=== PATIENT | male | born 1980 | race African-American/Black ===

== ENCOUNTER 2023-06-16 09:54 | Emergency (ER) | payer BC, SELFPAY ==
[2023-06-16 10:04] VITALS: BP 163/107
[2023-06-16 10:27] VITALS: BP 141/93
[2023-06-16 10:29] VITALS: BMI 33.9
[2023-06-16 10:31] VITALS: BP 141/93
--- NOTE | 2023-06-16 10:46 | ED.GENMED ---
History of Present Illness
General
Chief Complaint: Blood Pressure Problem
Source: patient
Exam Limitations: none
Time Seen by Provider: 06/16/23 10:19
Nursing documentation reviewed up to this point in time: agreed with
Travel History
Have you had any contact with someone who has COVID-19?: No
Do you have any symptoms of coronavirus? Fever > 100 degrees, chills, cough, shortness of breath, sore throat, loss of taste or smell, muscle aches, or headache?: No
History of Present Illness
History of Present Illness:
Patient with history of hypertension on valsartan and type 2 diabetes on Jardiance, presents to ED secondary to sudden onset of blurry vision associated with blood pressure while he was at work this morning around 8 AM. Since then, symptoms have
gradually improved and at time of evaluation, patient is without any symptoms. Denies headache. Denies difficulty with speech. Denies loss of sensation or weakness. Denies difficulty ambulation. Denies difficulty swallowing. Denies dizziness.
Patient states that he has had similar symptoms in the past, but always resolved spontaneously. Denies recent illness. Denies recent change in medications or diet.
Review of Systems
Review of Systems
Allergies reviewed?: Yes
All Other Systems: ROS reviewed and negative except as documented in HPI and ROS
Constitutional: Reports no symptoms
EENT: Reports no symptoms
Respiratory: Reports no symptoms
Cardiac: Reports no symptoms
ABD/GI: Reports no symptoms
: Reports no symptoms
Musculoskeletal: Reports no symptoms
Skin: Reports no symptoms
Neurological: Reports other (blurred vision)
Phy Exam
Physical Exam
Physical Exam:
Physical Exam
General: no apparent distress, not acutely ill. afebrile
Head: nc/at. eomi
Neck: supple. no meningeal signs.
Heart: s1/s2 regular rate and rhythm, no murmur. equal radial pulses.
Lungs: no acute respiratory distress. clear bilaterally
Abdomen: normal bowel sounds. not tender.
Neuro: alert and oriented. no focal neurological deficits. normal speech.
Skin: no rash
Psychiatric: well kept. interactive and cooperative
Extremities: no edema. no calf tenderness.
Course
Orders/Labs/Results
Orders:
Orders
06/16/23 10:43
Electrocardiogram (*1) Urgent
Reason for Study: TIA/Stroke
CT Head W/o Iv Contrast Urgent
Comment:
Reason For Exam: blurred vision w mental status change
EKG- Treatment ONCE
06/16/23 10:55
Basic Metabolic Panel Urgent
Complete Blood Count/No Diff Urgent
Magnesium Urgent
Troponin I Urgent
06/16/23 11:07
Carotid US [US Cerebrovascular] Urgent
Comment:
Reason For Exam: blurred vision w mental status change
Abnormal Lab Results
06/16/23
10:55
Hgb 12.9 L g/dL
(13.0-18.0)
MCV 79.4 L fL
(80.0-94.0)
MCH 25.7 L pg
(27.0-31.0)
MCHC 32.4 L g/dL
(33.0-37.0)
MPV 11.1 H fL
(7.4-10.4)
Sodium 134 L mmol/L
(135-145)
BUN 25 H mg/dl
(9-20)
Glucose 247 H mg/dl
(70-99)
06/16/23 10:55
06/16/23 10:55
Vital Signs
Initial and Last Documented VS:
Initial Vital Signs
Temp Pulse Resp BP Pulse Ox
98 F 91 16 163/107 98
06/16/23 10:04 06/16/23 10:04 06/16/23 10:04 06/16/23 10:04 06/16/23 10:04
Last Documented Vital Signs
Temp Pulse Resp BP Pulse Ox
98 F 88 14 137/93 100
06/16/23 10:04 06/16/23 13:45 06/16/23 13:45 06/16/23 13:17 06/16/23 12:00
MDM/Problems Addressed
MDM/Problems Addressed:
Patient remains symptom-free during observation. Patient evaluated in ED by Dr. Dennison, neurology. Recommends obtaining CT head along with carotid ultrasound. If there is no significant findings, does not recommend starting, but recommends
keeping log of his blood pressure and following up with his primary care physician as outpatient.
CT head/Carotid US: no acute findings.
Pt will be discharged home in stable condition.
*Critical Care Note
Total Time (30-74mins, 75-104mins- exclusive of procedures): Not Applicable
ED Attending Note
-
Portions of this chart may have been created with voice recognition software.� Occasional wrong word or��sound alike� substitutions may have occurred due to the inherent limitations of voice recognition software.
Discharge Plan
Departure
Patient Disposition: Home (Routine Discharge)
Date of Disposition: 06/16/23
Time of Disposition: 13:53
Patient with high blood pressure during this ER visit?: Yes
Condition: Good
Discharge Problem:
Blurred vision, bilateral, Hypertension
Instructions: High Blood Pressure (DC)
Prescriptions:
No Action
famotidine 10 mg Tablet
10 mg PO DAILY
valsartan-hydrochlorothiazide 160-12.5 mg Tablet
1 tab PO DAILY
ascorbic acid (vitamin C) [Vitamin C] 500 mg Capsule, Extended Release
500 mg PO DAILY
Jardiance 25 mg Tablet
25 mg PO DAILY
Referrals:
Michael Mercer MD [Family Provider] -
Activity Restrictions/Additional Instructions:
As discussed, please follow up with your primary care physician for re-evaluation. Until then, please keep daily log of your blood pressure.
Interventions
Interventions:
*Risk Screen - Suicide Last Done: 06/16/23 10:27
*General Assessment Last Done: 06/16/23 10:29
*Neglect/Abuse Screening Last Done: 06/16/23 10:27
ED- Fall Risk Assessment Last Done: 06/16/23 10:24
*ED COVID-19 Vaccine History Last Done: 06/16/23 10:24
*Nursing Disposition Last Done: 06/16/23 14:10
ED- Cardiac Assessment Last Done: 06/16/23 10:31
ED- Neurological Assessment Last Done: 06/16/23 10:24
ED- Pulmonary Assessment Last Done: 06/16/23 10:31
Discharge Date and Time
Discharge Date/Time: 06/16/23 14:00
[2023-06-16 11:01] LABS: Hematocrit 39.8 % (39.0-52.0); Hemoglobin 12.9 g/dL (13.0-18.0); Mean Corp Hgb Conc. 32.4 g/dL (33.0-37.0); Mean Corpuscular Hgb 25.7 pg (27.0-31.0); Mean Corpuscular Volume 79.4 fL (80.0-94.0); Mean Platelet Volume 11.1 fL (7.4-10.4); Platelet Count 304 10^3/uL (130-400); Red Blood Cell Count 5.01 10^6/uL (4.70-6.10); Red Cell Dist. Width 13.4 % (11.5-14.5); White Blood Cell Count 9.4 10^3/uL (4.8-10.8)
[2023-06-16 11:14] LABS: Blood Urea Nitrogen 25 mg/dl (9-20); Calcium 9.5 mg/dl (8.4-10.2); Carbon Dioxide 25 mmol/L (22-30); Chloride 101 mmol/L (98-107); Estimated Creatinine Clearance 93 ml/min; Glucose 247 mg/dl (70-99); Sodium 134 mmol/L (135-145); eGFR > 60.00
[2023-06-16 11:16] VITALS: BP 157/102
[2023-06-16 11:27] LABS: Troponin I < 0.012 ng/ml
[2023-06-16 12:00] VITALS: BP 139/98
[2023-06-16 13:17] VITALS: BP 137/93
--- NOTE | 2023-06-16 15:03 | CON.NEURO4 ---
Consultation - Neurology 4
-
CONSULTING PHYSICIAN: Jude Dennison
REFERRING PHYSICIAN: ER
DICTATED BY: Jude Dennison
DATE/TIME OF REQUEST: 06/16/23
DATE/TIME OF CONSULTATION: 06/16/23
Reason for Consultation:
History of Present Illness:
Patient is a 42-year-old left handed male with a past med history of hypertension and [id number] diabetes mellitus presenting the hospital with complaints of blurred vision, mild slowness in speech occurring earlier this morning while at
work.
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
speech and may be some slow processing. Patient did not have any unilateral facial or limb paresthesia or weakness no vertigo or loss of consciousness. He does feel like vision has normalized. No chronic vision issues, he did have right eye
cataract surgery.
Patient has had some episodes similar to previous with some blurred vision in the eyes with higher blood pressures. He has been compliant with high blood pressure medication as well as diabetes medications no previous episodes of stroke or TIA. No
unusual headaches or any recent head or neck trauma. No recent illnesses.
Past Medical History: Hypertension, non insulin dependent diabetes
Surgical History: Right eye cataract surgery
Family History: Hypertension runs in the family
Social History: Engaged, works as medical device assembler, rare social alcohol once every 2 weeks, no tobacco
Review of Symptoms:
Patient denies any fever, headache, chest pain, shortness of breath, GI or symptoms.
Physical Exam:
Well-appearing middle-aged man well-groomed well-nourished no signs of head or neck trauma eyes are clear oropharynx is clear neck supple with no masses and full range of motion heart rate regular breathing unlabored abdomen soft nontender no lower
extremity edema is seen
Neurologic Examination:
The patient is awake, alert and oriented x 3. He is able to follow commands and answer questions appropriately. There is no aphasia or dysarthria. On cranial nerve assessment, pupils are 3 mm bilateral, round and reactive to light and
accommodation. Visual ramesh are full. Vision 20/20 in OD and OS. Extraocular movements are intact. Facial sensations are intact and bilaterally symmetrical, there is no facial asymmetry. Hearing is intact bilaterally to normal conversation volume.
Tongue palate and uvula are midline. Sternocleidomastoid strengths are full bilaterally. Motor strengths are 5/5 bilateral upper and lower extremities on medical research [place] scale. There is no drift or involuntary movement noted. Deep tendon
reflexes are 2+ bilateral upper and lower extremities and Babinski is absent bilaterally. Sensations of pain, touch, temperature and vibration are intact and bilaterally symmetrical. There was no extinction noted on double simultaneous stimulation.
Coordination is intact by finger to nose bilaterally.
Neuro Imaging:
CT head noncontrast with no acute abnormality no acute or chronic infarct seen no hemorrhage no masses no mass effect or edema
Carotid ultrasound no plaque and no significant stenosis any stenosis present would be less than 50%
Impressions
Blurred vision is most likely attributable to high blood pressure blood pressure was as high as 180 systolic here in the ER. The bilateral nature of the symptoms involving both eyes along with some previous history of similar instances is
reassuring that this is not a TIA which would be more likely to produce unilateral symptoms or monocular symptoms. CT head noncontrast reassuring for no structural abnormalities nor any findings of chronic stroke and carotid ultrasound also
reassuring for no significant plaque or stenosis.
Recommendations:
1. Encouraged daily blood pressure checks at home
2. Discussed with his primary care physician about adjustments in blood pressure medications
3. Not going to recommend starting any chronic aspirin therapy given I do not feel that this is a TIA and no findings of chronic stroke or significant carotid stenosis on imaging here in the ER
4. Okay for discharge home with PCP follow up, continue working on blood pressure and would have daily blood pressure checks at home and keep a log
Discussed patient care with: Patient, ED
== END 2023-06-16 14:00 | disposition home or self-care (01) ==
LOC: EMR 09:54
PROVIDERS: EMERGENCY PHYSICIAN Emergency Medicine; FAMILY PHYSICIAN Internal Medicine; OTHER PHYSICIAN Student in an Organized Health Care Education/Training Program
DX: H53.8 Other visual disturbances (principal); I10 Essential (primary) hypertension; E11.9 Type 2 diabetes mellitus without complications
CPT/HCPCS: 99285; 70450; 80048; 83735; 84484; 85027; 93005; 93880